=== PATIENT | female | born 1950 | race Caucasian/White ===

== ENCOUNTER 2017-02-07 01:28 | Inpatient (IN) | payer MEDICARE, OTHER ==
[~2017-02-07] VITALS: Ht 162.6 cm; Wt 53.0 kg
[2017-02-07] MEDS ORDERED: CEPH500 PO (01:38)
[2017-02-07] MEDS ORDERED: METF500T4 PO (01:38)
[2017-02-07] MEDS ORDERED: LOSA50TA37 PO (01:38)
[2017-02-07] MEDS ORDERED: ALBI50PE SQ (01:38)
[2017-02-07] MEDS ORDERED: INSLAN SQ (01:38)
[2017-02-07] MEDS ORDERED: INSNOV SQ (01:38)
[2017-02-07] MEDS ORDERED: HYDROCODONE/ACETAMINOPHEN 5-325 MG TABLET PO ONE (01:45)
[2017-02-07 01:47] LABS: GLUCOSE,POINT OF CARE 223 MG/DL (70-110)
[2017-02-07 01:57] LABS: BASOPHILS # (AUTO) 0.02 K/uL (0.00-0.20); BASOPHILS % (AUTO) 0.3 % (0.0-2.0); EOSINOPHILS # (AUTO) 0.12 K/uL (0.00-0.70); EOSINOPHILS % (AUTO) 1.54 % (1.0-6.0); HEMOGLOBIN 15.4 g/dL (12.0-16.0); LYMPHOCYTES % (AUTO) 25.6 % (22.0-44.0); MEAN CORPUSCULAR HEMOGLOBIN 28.3 pg (26.0-34.0); MEAN CORPUSCULAR HGB CONC 32.8 G/dL (31.0-37.0); MEAN CORPUSCULAR VOLUME 87 fL (80-100); MONOCYTES # (AUTO) 0.7 K/uL (0.1-1.0); MONOCYTES % (AUTO) 8.7 % (2.0-9.0); NEUTROPHILS # (AUTO) 5.1 K/uL (1.8-7.7); NEUTROPHILS % (AUTO) 63.9 % (40.0-70.0); PLATELET COUNT (AUTO) 438 K/uL (150-450); RED BLOOD CELL COUNT(AUTO) 5.43 MIL/uL (4.00-5.20); RED CELL DISTRIBUTION WIDTH 13.3 % (11.5-14.5); WHITE BLOOD COUNT (AUTO) 7.9 K/uL (4.5-11.0)
[2017-02-07 02:03] LABS: PROTHROMBIN TIME 10.2 SEC (9.4-11.6)
[2017-02-07 02:05] LABS: ANION GAP 10 mmol/L (8-16); CALCIUM, TOTAL 9.3 mg/dL (8.8-10.5); CARBON DIOXIDE 28 mmol/L (22-29); CHLORIDE 102 mmol/L (98-107); CREATININE 0.59 mg/dL (0.60-1.30); GLOMERULAR FILTR. RATE CALC > 60 mL/min (>60); POTASSIUM 4.1 mmol/L (3.5-5.1); SODIUM SERUM 140 mmol/L (136-145); UREA NITROGEN, BLOOD 10 mg/dL (7-18)
[2017-02-07 02:08] LABS: ALANINE AMINOTRANSFERASE 26 U/L (12-78); ALBUMIN 3.8 g/dL (3.4-5.0); ASPARTATE AMINOTRANSFERASE 11 U/L (15-37); BILIRUBIN,TOTAL 0.5 mg/dL (0.1-1.0); TOTAL PROTEIN, SERUM 6.9 g/dL (6.4-8.2)
[2017-02-07] MEDS ORDERED: ACETAMINOPHEN 325 MG TABLET PO PRN (05:15)
[2017-02-07] MEDS ORDERED: HYDROCODONE/ACETAMINOPHEN 5-325 MG TABLET PO PRN (05:15)
[2017-02-07] MEDS ORDERED: ONDANSETRON HCL 4 MG/2 ML VIAL IVP PRN ×2 (05:15→08:00)
[2017-02-07] MEDS ORDERED: 0.9% SODIUM CHLORIDE 10 ML SYRINGE IVP PRN ×2 (05:15→08:00)
[2017-02-07 05:21] LABS: APPEARANCE,URINE TURBID (CLEAR); GLUCOSE, URINE (UA) >=1000 mg/dL (NEGATIVE); KETONES,URINE 15 mg/dL (NEGATIVE); LEUKOCYTE ESTERASE ,URINE TRACE (NEGATIVE); OCCULT BLOOD,URINE NEGATIVE (NEGATIVE); PROTEIN,URINE NEGATIVE (NEGATIVE)
[2017-02-07 05:22] LABS: ADD UA MICROSCOPIC YES
[2017-02-07 05:29] LABS: SQUAMOUS EPITHELIAL CELL,UR Rare /LPF (None Seen)
[2017-02-07] MEDS ORDERED: CefTRIAXone 1 GM/DEXTROSE 50 ML IV ONE (05:45)
[2017-02-07 06:38] VITALS: BP 129/75
[2017-02-07] MEDS ORDERED: OxyCODONE HCL/ACETAMINOPHEN 5-325 MG TABLET PO PRN (08:00)
[2017-02-07] MEDS ORDERED: DEXTROSE 50%-WATER 25 GM/50 ML SYRINGE IVP PRN (08:00)
[2017-02-07 08:03] VITALS: BP 113/57
[2017-02-07] MEDS ORDERED: MORPHINE SULFATE 2 MG/ML SYRINGE IVP PRN (08:15)
[2017-02-07] MEDS ORDERED: PNEUMOCOCCAL VACCINE POLYVALENT 0.5 ML VIAL [PPSV23] IM ONE (08:45)
[2017-02-07] MEDS ORDERED: LOSARTAN POTASSIUM 50 MG TABLET PO SCH (09:00)
[2017-02-07] MEDS: DOCUSATE SODIUM 100 MG CAPSULE PO SCH ×2 (09:02→20:15)
[2017-02-07] MEDS: PANTOPRAZOLE SODIUM 40 MG/VIAL IVP SCH (09:02)
[2017-02-07] MEDS: INSULIN DETEMIR 100 UNITS/ML SQ SCH (09:05)
[2017-02-07 11:02] LABS: GLUCOSE,POINT OF CARE 329 MG/DL (70-110)
[2017-02-07 11:02] LABS: GLUCOSE,POINT OF CARE 302 MG/DL (70-110)
[2017-02-07 11:52] VITALS: BP 102/51
[2017-02-07] MEDS: INSULIN ASPART 100 UNITS/ML SQ PRN ×3 (11:58→20:21)
[2017-02-07 15:49] VITALS: BP 107/58
[2017-02-07] MEDS: HEPARIN SODIUM,PORCINE 5,000 UNITS/ML VIAL SQ SCH ×2 (16:14→23:50)
[2017-02-07 17:22] LABS: GLUCOSE,POINT OF CARE 263 MG/DL (70-110)
[2017-02-07 20:10] VITALS: BP 105/53
[2017-02-07] MEDS: OxyCODONE HCL/ACETAMINOPHEN 5-325 MG TABLET PO PRN (20:15)
[2017-02-07 23:15] VITALS: BP 105/59
[2017-02-07 23:53] LABS: GLUCOSE COMMENT 1 Received Meds; GLUCOSE,POINT OF CARE 378 MG/DL (70-110)
[2017-02-08] MEDS: INSULIN ASPART 100 UNITS/ML SQ PRN ×3 (05:35→20:11)
[2017-02-08 06:02] VITALS: BP 111/65
[2017-02-08 06:02] LABS: GLUCOSE,POINT OF CARE 202 MG/DL (70-110)
[2017-02-08 07:01] LABS: ANION GAP 9 mmol/L (8-16); CALCIUM, TOTAL 8.6 mg/dL (8.8-10.5); CARBON DIOXIDE 27 mmol/L (22-29); CHLORIDE 104 mmol/L (98-107); CREATININE 0.54 mg/dL (0.60-1.30); GLOMERULAR FILTR. RATE CALC > 60 mL/min (>60); POTASSIUM 3.6 mmol/L (3.5-5.1); SODIUM SERUM 140 mmol/L (136-145); UREA NITROGEN, BLOOD 19 mg/dL (7-18)
[2017-02-08 07:05] LABS: BASOPHILS # (AUTO) 0.03 K/uL (0.00-0.20); BASOPHILS % (AUTO) 0.3 % (0.0-2.0); EOSINOPHILS # (AUTO) 0.14 K/uL (0.00-0.70); EOSINOPHILS % (AUTO) 1.66 % (1.0-6.0); HEMATOCRIT 44.1 % (36-46); HEMOGLOBIN 14.3 g/dL (12.0-16.0); LYMPHOCYTES # (AUTO) 2.4 K/uL (1.0-4.8); MEAN CORPUSCULAR HEMOGLOBIN 28.4 pg (26.0-34.0); MEAN CORPUSCULAR HGB CONC 32.4 G/dL (31.0-37.0); MEAN CORPUSCULAR VOLUME 88 fL (80-100); MONOCYTES # (AUTO) 0.6 K/uL (0.1-1.0); MONOCYTES % (AUTO) 7.6 % (2.0-9.0); NEUTROPHILS # (AUTO) 5.3 K/uL (1.8-7.7); NEUTROPHILS % (AUTO) 62.5 % (40.0-70.0); PLATELET COUNT (AUTO) 371 K/uL (150-450); RED BLOOD CELL COUNT(AUTO) 5.03 MIL/uL (4.00-5.20); RED CELL DISTRIBUTION WIDTH 13.3 % (11.5-14.5); WHITE BLOOD COUNT (AUTO) 8.4 K/uL (4.5-11.0)
[2017-02-08 07:42] VITALS: BP 113/50
[2017-02-08 08:18] VITALS: BP 116/67
[2017-02-08] MEDS: HEPARIN SODIUM,PORCINE 5,000 UNITS/ML VIAL SQ SCH ×2 (08:49→15:03)
[2017-02-08] MEDS: DOCUSATE SODIUM 100 MG CAPSULE PO SCH ×2 (08:49→20:11)
[2017-02-08] MEDS: LOSARTAN POTASSIUM 25 MG TABLET PO SCH (08:50)
[2017-02-08] MEDS: PANTOPRAZOLE SODIUM 40 MG/VIAL IVP SCH (08:53)
[2017-02-08 11:00] VITALS: BP 111/50
[2017-02-08] MEDS: INSULIN DETEMIR 100 UNITS/ML SQ SCH (11:31)
[2017-02-08 11:33] LABS: GLUCOSE,POINT OF CARE 305 MG/DL (70-110)
[2017-02-08] MEDS: CHOLECALCIFEROL (VIT D3) 2,000 UNITS TABLET PO SCH (12:59)
[2017-02-08 15:00] VITALS: BP 110/58
[2017-02-08 17:08] LABS: GLUCOSE,POINT OF CARE 267 MG/DL (70-110)
[2017-02-08 20:12] VITALS: BP 130/68
[2017-02-08 20:27] LABS: GLUCOSE,POINT OF CARE 303 MG/DL (70-110)
[2017-02-09] VITALS (7 sets, daily range): BP systolic 100–133; BP diastolic 53–78
[2017-02-09] MEDS: HEPARIN SODIUM,PORCINE 5,000 UNITS/ML VIAL SQ SCH ×4 (00:30→23:49)
[2017-02-09] MEDS: OxyCODONE HCL/ACETAMINOPHEN 5-325 MG TABLET PO PRN ×2 (01:58→20:18)
[2017-02-09] MEDS: INSULIN ASPART 100 UNITS/ML SQ PRN ×4 (06:18→20:57)
[2017-02-09 06:23] LABS: GLUCOSE,POINT OF CARE 208 MG/DL (70-110)
[2017-02-09] MEDS: PANTOPRAZOLE SODIUM 40 MG/VIAL IVP SCH (08:30)
[2017-02-09] MEDS: LOSARTAN POTASSIUM 25 MG TABLET PO SCH (08:31)
[2017-02-09] MEDS: CHOLECALCIFEROL (VIT D3) 2,000 UNITS TABLET PO SCH (08:31)
[2017-02-09] MEDS: DOCUSATE SODIUM 100 MG CAPSULE PO SCH ×2 (08:31→20:18)
[2017-02-09] MEDS: INSULIN DETEMIR 100 UNITS/ML SQ SCH (09:32)
[2017-02-09 09:43] LABS: GLUCOSE,POINT OF CARE 313 MG/DL (70-110)
[2017-02-09 12:22] LABS: GLUCOSE,POINT OF CARE 275 MG/DL (70-110)
[2017-02-09 17:52] LABS: GLUCOSE,POINT OF CARE 281 MG/DL (70-110)
[2017-02-09 20:57] LABS: GLUCOSE COMMENT 1 Received Meds; GLUCOSE,POINT OF CARE 311 MG/DL (70-110)
[2017-02-10 03:35] VITALS: BP 120/63
[2017-02-10 05:42] LABS: GLUCOSE,POINT OF CARE 192 MG/DL (70-110)
[2017-02-10] MEDS: INSULIN ASPART 100 UNITS/ML SQ PRN ×2 (06:47→11:24)
[2017-02-10 07:44] VITALS: BP 122/72
[2017-02-10] MEDS: DOCUSATE SODIUM 100 MG CAPSULE PO SCH (08:42)
[2017-02-10] MEDS: LOSARTAN POTASSIUM 25 MG TABLET PO SCH (08:42)
[2017-02-10] MEDS: CHOLECALCIFEROL (VIT D3) 2,000 UNITS TABLET PO SCH (08:42)
[2017-02-10] MEDS: HEPARIN SODIUM,PORCINE 5,000 UNITS/ML VIAL SQ SCH ×2 (08:43→16:07)
[2017-02-10] MEDS: INSULIN DETEMIR 100 UNITS/ML SQ SCH (08:45)
[2017-02-10] MEDS ORDERED: PANTOPRAZOLE SODIUM 40 MG DR TABLET PO SCH (09:00)
[2017-02-10 11:07] VITALS: BP 118/63
[2017-02-10 11:23] LABS: GLUCOSE COMMENT 1 Received Meds; GLUCOSE,POINT OF CARE 294 MG/DL (70-110)
[2017-02-10 15:09] VITALS: BP 115/70
== END 2017-02-10 17:05 | disposition home or self-care (01) | DRG 543 ==
LOC: EMS 01:30 → 6N 05:15 → 4E 06:21
PROVIDERS: ADMIT Internal Medicine; ATTEND Internal Medicine
DX: M84.412A Pathological fracture, left shoulder, initial encounter for fracture (principal); N39.0 Urinary tract infection, site not specified; F03.90 Unspecified dementia, unspecified severity, without behavioral disturbance, psychotic disturbance, mood disturbance, and anxiety; E11.9 Type 2 diabetes mellitus without complications; I10 Essential (primary) hypertension; S00.511A Abrasion of lip, initial encounter; E78.5 Hyperlipidemia, unspecified; R29.6 Repeated falls; M81.0 Age-related osteoporosis without current pathological fracture; E55.9 Vitamin D deficiency, unspecified; R62.7 Adult failure to thrive; Z28.21 Immunization not carried out because of patient refusal; Z79.899 Other long term (current) drug therapy; Z79.4 Long term (current) use of insulin; Z79.84 Long term (current) use of oral hypoglycemic drugs; Z79.2 Long term (current) use of antibiotics; Z98.1 Arthrodesis status; Z87.440 Personal history of urinary (tract) infections; W01.0XXA Fall on same level from slipping, tripping and stumbling without subsequent striking against object, initial encounter; Y93.89 Activity, other specified; Y92.129 Unspecified place in nursing home as the place of occurrence of the external cause; Y99.8 Other external cause status; S02.2XXA Fracture of nasal bones, initial encounter for closed fracture
CPT/HCPCS: 29105; 51702; 70450; 70486; 72125; 82306; 82962; 87081; 87086; 93005; 96365; 97110; 97162; 97165; 97530; 99285; C9113; J0696; J1644

== ENCOUNTER 2017-03-16 14:02 | Emergency (ER) | payer MEDICARE, OTHER ==
[~2017-03-16] VITALS: Ht 160 cm; Wt 47.7 kg
[~2017-03-16 14:02] MED LIST: ALBI50PE SQ; CEPH500 PO; INSLAN SQ; INSNOV SQ; LOSA50TA37 PO; METF500T4 PO
[2017-03-16] MEDS ORDERED: DSS100 PO (14:29)
[2017-03-16] MEDS ORDERED: PANT40TA25 PO (14:29)
[2017-03-16] MEDS ORDERED: ASCO500 PO (14:29)
[2017-03-16] MEDS ORDERED: VITAD1000 PO (14:29)
[2017-03-16] MEDS ORDERED: CALC-1174 PO (14:29)
[2017-03-16] MEDS ORDERED: INSU100V12 SQ (14:29)
[2017-03-16 18:18] VITALS: BP 138/69
== END 2017-03-16 19:59 | disposition home or self-care (01) ==
LOC: EMS 14:04
DX: S09.90XA Unspecified injury of head, initial encounter (principal); E11.9 Type 2 diabetes mellitus without complications; I10 Essential (primary) hypertension; Z79.4 Long term (current) use of insulin; W19.XXXA Unspecified fall, initial encounter; Y93.89 Activity, other specified; Y92.89 Other specified places as the place of occurrence of the external cause; Y99.8 Other external cause status
CPT/HCPCS: 70450; 70486; 72125; 99284